=== PATIENT | female | born 1930 | race Caucasian/White ===

== ENCOUNTER → 2018-01-15 | Outpatient (REF) ==
[~2018-01-15] MED LIST: ALEVE 220MG220 MG PO; COZAAR 50MG50 MG/TAB PO; PLAVIX 75MG TAB75 MG PO; PREDNISONE20 MG PO; PULMICORT0.5 MG/2 M IH; RT ALBUTER2.5 MG/0.5 IH; RYTARY1 CE2 PO; ZANTAC 150MG T150 MG PO; ZITHROMAX 250M250 MG PO; [UNRECOGNIZED DRUG - OTHER] PO
== END ==
LOC: ZLAB.WCH 18:04
DX: Z01.89 Encounter for other specified special examinations (principal)